=== PATIENT | female | born 2000 | race Caucasian/White ===

== ENCOUNTER 2021-04-15 05:56 | Emergency (ER) | payer BC ==
[2021-04-15] MEDS ORDERED: Ketorolac Tromethamine 30 MG/ML VIAL ONE (07:49)
[2021-04-15] MEDS ORDERED: Bicillin LA 1.2 MILLION UNITS/2 ML SYRINGE ONE (07:50)
== END 2021-04-15 09:31 | disposition home or self-care (01) ==
LOC: CSHERS 05:56
DX: J02.0 Streptococcal pharyngitis (principal); J45.909 Unspecified asthma, uncomplicated; J42 Unspecified chronic bronchitis; F17.290 Nicotine dependence, other tobacco product, uncomplicated; Z79.899 Other long term (current) drug therapy
CPT/HCPCS: 96372; 99283; J0561; J1885